=== PATIENT | female | born 1980 | race Caucasian/White ===

== ENCOUNTER 2025-01-11 16:57 | Emergency (ER) | payer SELFPAY ==
[2025-01-11] MEDS ORDERED: cefTRIAXone 500 MG, Lidocaine 1% 1 ML IM ONE (17:35)
[2025-01-11 17:44] LABS: APPEARANCE,URINE CLOUDY (CLEAR); GLUCOSE,URINE NEGATIVE (NEGATIVE); OCCULT BLOOD,URINE TRACE-INTACT (NEGATIVE)
[2025-01-11 17:52] LABS: EPITHELIAL CELLS,URINE FEW /HPF (NOT SEEN)
[2025-01-14 14:47] LABS: C.TRACHOMATIS BY TMA Negative (Negative); M GENITALIUM Negative (Negative); M GENITALIUM SOURCE Urine; N.GONORRHOEAE BY TMA Negative (Negative)
== END 2025-01-11 17:55 | disposition left against medical advice (07) ==
LOC: DL.ED 16:57
DX: L73.9 Follicular disorder, unspecified (principal); L30.9 Dermatitis, unspecified; Z79.899 Other long term (current) drug therapy
CPT/HCPCS: 81001; 81025; 87086; 87088; 87186; 87491; 87563; 87591; 99283